=== PATIENT | male | born 1980 | race Caucasian/White ===

== ENCOUNTER 2024-06-02 11:42 | Emergency (ER) | payer MEDICAID ==
[~2024-06-02] VITALS: Ht 175.3 cm; Wt 68.2 kg
[2024-06-02 11:52] VITALS: TEMP 98.6
[2024-06-02] MEDS ORDERED: METF-1211 PO (11:56)
[2024-06-02 13:11] LABS: HEMATOCRIT 36.4 % (41-53); HEMOGLOBIN 12.2 g/dL (13.5-17.5); MEAN CORPUSCULAR HEMOGLOBIN 29.9 pg (26.0-34.0); MEAN CORPUSCULAR HGB CONC 33.4 G/dL (31.0-37.0); MEAN CORPUSCULAR VOLUME 90 fL (80-100); PLATELET COUNT (AUTO) 435 K/uL (150-450); RED BLOOD CELL COUNT(AUTO) 4.06 MIL/uL (4.50-5.90); RED CELL DISTRIBUTION WIDTH 12.5 % (11.5-14.5)
[2024-06-02 13:26] LABS: CARBON DIOXIDE 32 mmol/L (22-29); CHLORIDE 90 mmol/L (98-107); POTASSIUM 4.4 mmol/L (3.5-5.1); SODIUM SERUM 127 mmol/L (136-145)
[2024-06-02 13:27] LABS: ANION GAP 5 mmol/L (8-16); CALCIUM, TOTAL 8.7 mg/dL (8.8-10.5); CREATININE 0.95 mg/dL (0.60-1.30); GLOMERULAR FILTR. RATE CALC > 60 mL/min (>60); UREA NITROGEN, BLOOD 18 mg/dL (7-18); WHITE BLOOD COUNT (AUTO) 33.4 K/uL (4.5-11.0)
[2024-06-02 13:28] LABS: GLUCOSE,RANDOM 448 mg/dL (70-110)
[2024-06-02 13:43] LABS: LACTIC ACID 1.2 mmol/L (0.4-2.0)
[2024-06-02 13:58] LABS: BAND NEUTROPHILS % (MANUAL) 1 % (0-5); LYMPHOCYTES % (MANUAL) 8 % (22-44); MONOCYTES % (MANUAL) 6 % (2-9); SEGMENTED NEUTROPHILS % 85 % (40-70); TOTAL CELLS COUNTED 100
[2024-06-02 13:59] LABS: RBC MORPHOLOGY COMMENT NORMAL RBC MORPH
[2024-06-02] MEDS ORDERED: VANCOMYCIN 1GM/WATER(PEG/NADA) 200 ML IV ONE (14:15)
[2024-06-02] MEDS: PIPERACILLIN/TAZO 3.375 GM/D5W 50 ML IV ONE (15:40)
[2024-06-02] MEDS: VANCOMYCIN HCL 1 GM/D5% WATER 200 ML IV ONE (15:41)
[2024-06-02 17:11] VITALS: BP 155/95; PULSE 126; RESP 18; O2SAT 98
== END 2024-06-02 18:06 | disposition short-term general hospital (02) ==
LOC: EMS 11:50
DX: M65.142 Other infective (teno)synovitis, left hand (principal); E11.9 Type 2 diabetes mellitus without complications
CPT/HCPCS: 99285; 96365; 80048; 83605; 85025; 87040; 87077; 87186; 87205; 36415; 73130; 82962; 96368; J2543; J3370; 99284